=== PATIENT | female | born 1970 | race Caucasian/White ===

== ENCOUNTER 2025-07-09 16:15 | Inpatient (IN) | payer SELFPAY ==
[~2025-07-09 16:15] MED LIST: Iopamidol 300 61% 100 ML VIAL FS ONE
[2025-07-09 17:39] LABS: Glucose, Urine (Dipstick) Normal (Negative); Leukocyte Negative (Negative); Protein, Urine (Dipstick) 30 mg/dl (Neg-Trace); Specific Gravity, Urine 1.020 (1.005-1.030)
[2025-07-09 17:59] LABS: Bacteria/HPF 3+ HPF (None Seen); CAUTI Indications for Culture Pelvic or flank pain; Mucous/LPF 4+ LPF (<2+); RBC/HPF 0-3 HPF (0-3); Urine Culture Reflex No No; WBC/HPF 0-3 HPF (0-3)
[2025-07-09 18:34] LABS: #Basophils 0.06 10x3/uL (0.0-0.2); #Eosinophils 0.24 10x3/uL (0.0-0.5); #Monocytes 0.28 10x3/uL (0.0-1.1); #Neutrophils 6.90 10x3/uL (1.5-8.4); %Basophils 0.8 % (0.0-2.0); %Eosinophils 3.0 % (0.0-6.0); %Lymphocytes 5.9 % (18.0-47.0); %Monocytes 3.5 % (0.0-10.0); %Neutrophils 86.3 % (40.0-75.0); Hematocrit 20.9 % (34.9-44.5); Hemoglobin 5.6 g/dL (12.0-15.5); Mean Corpuscular Hemoglobin 16.7 pg (27.0-33.0); Mean Corpuscular Volume 62.4 fL (81.6-98.3); Platelet Count 530 10x3/uL (150-450); Red Blood Cell (RBC) Count 3.35 10x6/uL (3.90-5.03); White Blood Cell (WBC) Count 7.99 10x3/uL (3.5-10.5)
[2025-07-09 18:36] LABS: ALT (SGPT) 12 U/L (Less than 34); AST (SGOT) 26 U/L (11-34); Albumin 4.0 g/dL (3.1-4.5); Alkaline Phosphatase 69 U/L (40-110); Anion Gap 17 mmol/L (10-20); BUN (Urea Nitrogen) 7 mg/dL (9.8-20.1); Bilirubin, Total 0.5 mg/dL (0.3-1.2); Calc. Creatinine Clearance 0 mL/min (70-130); Calcium 9.2 mg/dL (7.8-10.44); Carbon Dioxide 22 mmol/L (22-29); Chloride 101 mmol/L (98-107); Globulin 3.6 g/dL (2.4-3.5); Glucose 116 mg/dL (70-105); Lipase 45 U/L (8-78); Potassium 3.2 mmol/L (3.5-5.1); Sodium 137 mmol/L (136-145)
[2025-07-09 19:03] LABS: Iron Binding Capacity, Total 526 mcg/dL (265-497); Transferrin, Serum 421 mg/dL (180-382)
[2025-07-09 19:04] LABS: Iron 17 ug/dL (50-170); Iron Binding Capacity, Total 521 mcg/dL (265-497)
[2025-07-09] MEDS ORDERED: Pantoprazole 40 MG VIAL ONE (19:18)
[2025-07-09 20:54] LABS: Magnesium 1.8 mg/dL (1.6-2.6)
[2025-07-09 21:42] LABS: Platelet Adequacy Comment Appears Increased
[2025-07-09 21:43] LABS: Anisocytosis MARKED = >30 cells (100X) (0-5/hpf); Microcytosis MARKED = >30 cells (100X) (0-5/hpf); Poikilocytosis MARKED = >30 cells (100X) (0-5/hpf)
[2025-07-09 21:44] LABS: Macrocytosis SLIGHT = 6-15 cells (100X) (0-5/hpf); Polychromasia SLIGHT = 2-3 cells (100X) (0-2/hpf); Target Cells SLIGHT = 2-5 cells (100X) (0-1/hpf)
[2025-07-09 21:46] LABS: Reflex for Review?? YES
[2025-07-09 23:01] VITALS: BMI 26.9
[2025-07-09] MEDS: Potassium Chloride 20 MEQ in Premix 1 BAG IVPB SCH (23:02)
[2025-07-09 23:19] VITALS: BP 119/69
[2025-07-10 00:19] LABS: INR-International Normal Ratio 1.1; PTT 24.5 sec (22.0-33.0); Prothrombin Time 12.0 sec (9.5-12.1)
[2025-07-10 03:36] LABS: #Basophils 0.04 10x3/uL (0.0-0.2); #Eosinophils 0.07 10x3/uL (0.0-0.5); #Monocytes 0.34 10x3/uL (0.0-1.1); #Neutrophils 4.68 10x3/uL (1.5-8.4); %Basophils 0.6 % (0.0-2.0); %Eosinophils 1.1 % (0.0-6.0); %Lymphocytes 18.4 % (18.0-47.0); %Monocytes 5.4 % (0.0-10.0); %Neutrophils 74.3 % (40.0-75.0); Hematocrit 24.3 % (34.9-44.5); Hemoglobin 6.8 g/dL (12.0-15.5); Mean Corpuscular Hemoglobin 18.5 pg (27.0-33.0); Mean Corpuscular Volume 66.0 fL (81.6-98.3); Platelet Count 380 10x3/uL (150-450); Red Blood Cell (RBC) Count 3.68 10x6/uL (3.90-5.03); White Blood Cell (WBC) Count 6.30 10x3/uL (3.5-10.5)
[2025-07-10 03:48] LABS: Anion Gap 10 mmol/L (10-20); BUN (Urea Nitrogen) 6 mg/dL (9.8-20.1); Calc. Creatinine Clearance 157 mL/min (70-130); Calcium 8.7 mg/dL (7.8-10.44); Carbon Dioxide 26 mmol/L (22-29); Chloride 107 mmol/L (98-107); Glucose 92 mg/dL (70-105); Potassium 3.2 mmol/L (3.5-5.1); Sodium 140 mmol/L (136-145)
[2025-07-10] MEDS: Potassium Chloride 20 MEQ in Premix 1 BAG IVPB SCH (05:28)
[2025-07-10] MEDS: Pantoprazole 80 MG, Admixture Fee 1 EACH in Sodium Chloride 0.9% 100 ML IVP SCH (05:50)
[2025-07-10] MEDS ORDERED: Lidocaine 1% PF 5 ML VIAL ONE (14:45)
[2025-07-10] MEDS ORDERED: PROPOFOL 20 ML ONE ×2 (14:46)
[2025-07-10] MEDS: Sodium Ferric Gluconate 250 MG in Sodium Chloride 0.9% 250 ML 250 ML IVPB SCH (15:50)
[2025-07-10] MEDS: GoLYTELY 4,000 ml Bottle PO SCH (17:56)
[2025-07-11 04:12] LABS: #Basophils 0.03 10x3/uL (0.0-0.2); #Eosinophils 0.14 10x3/uL (0.0-0.5); #Monocytes 0.23 10x3/uL (0.0-1.1); #Neutrophils 2.73 10x3/uL (1.5-8.4); %Basophils 0.8 % (0.0-2.0); %Eosinophils 3.5 % (0.0-6.0); %Lymphocytes 20.9 % (18.0-47.0); %Monocytes 5.8 % (0.0-10.0); %Neutrophils 68.7 % (40.0-75.0); Hematocrit 27.5 % (34.9-44.5); Hemoglobin 8.1 g/dL (12.0-15.5); Mean Corpuscular Hemoglobin 20.3 pg (27.0-33.0); Mean Corpuscular Volume 68.9 fL (81.6-98.3); Platelet Count 351 10x3/uL (150-450); Red Blood Cell (RBC) Count 3.99 10x6/uL (3.90-5.03); White Blood Cell (WBC) Count 3.97 10x3/uL (3.5-10.5)
[2025-07-11 07:26] VITALS: TEMP 97.9
[2025-07-11] MEDS: Multivitamin W/ Minerals 1 TAB PO SCH (08:50)
[2025-07-11] MEDS: Thiamine 100 MG TAB PO SCH (08:50)
[2025-07-11] MEDS ORDERED: Lidocaine 2% PF 100 mg/5 ml Syringe ONE (09:02)
[2025-07-11] MEDS ORDERED: Lidocaine 1% PF 5 ML VIAL ONE ×2 (09:02→12:14)
[2025-07-11] MEDS ORDERED: PROPOFOL 0 ML ONE (09:02)
[2025-07-11] MEDS: Pantoprazole 40 MG DR.TAB PO SCH (12:00)
[2025-07-11] MEDS ORDERED: PROPOFOL 40 ML ONE (12:14)
[2025-07-12] MEDS ORDERED: Pantoprazole 40 MG DR.TAB PO SCH (09:00)
== END 2025-07-11 16:45 | disposition home or self-care (01) | DRG 392 ==
LOC: CSHERS 16:15 → CSHERHOLD 19:13 → CSHICU 22:57
PROVIDERS: ADMIT Family Medicine; ATTEND Student in an Organized Health Care Education/Training Program
PROC: 30233N1 Transfusion of Nonautologous Red Blood Cells into Peripheral Vein, Percutaneous Approach (ICD-10-PCS; 2025-07-09)
PROC: 0DJ08ZZ Inspection of Upper Intestinal Tract, Via Natural or Artificial Opening Endoscopic (ICD-10-PCS; principal; 2025-07-10)
PROC: 0DJD8ZZ Inspection of Lower Intestinal Tract, Via Natural or Artificial Opening Endoscopic (ICD-10-PCS; 2025-07-11)
DX: R10.9 Unspecified abdominal pain (principal); K59.00 Constipation, unspecified; D50.9 Iron deficiency anemia, unspecified; E87.6 Hypokalemia; N92.4 Excessive bleeding in the premenopausal period; Z88.0 Allergy status to penicillin; Z98.890 Other specified postprocedural states
CPT/HCPCS: 36415; 36430; 74177; 80048; 80053; 81001; 82607; 82728; 83540; 83550; 83605; 83690; 83735; 84425; 84466; 85025; 85060; 85610; 85730; 86850; 86900; 86901; 93005; 96365; 96366; 96375; J2003; J2250; J2272; J2470; J2704; J2916; J3010; J3480; J7030; J7050; P9016; Q9967